=== PATIENT | male | born 1975 | race Caucasian/White ===

== ENCOUNTER 2017-10-16 19:18 | Observation (INO) | payer OTHER ==
[~2017-10-16] VITALS: Ht 182.9 cm; Wt 99.8 kg
[2017-10-16] MEDS ORDERED: MARI INH (19:36)
--- NOTE | 2017-10-16 20:01 | ED NECK/BACK PAIN COMPLAINT ---
See Addendum History of Present Illness General Chief Complaint: Low Back Pain/Injury Stated Complaint: BIBA FOR BACK PAIN Source: patient Exam Limitations: no limitations Vital Signs & Intake/Output Vital Signs & Intake/Output Vital Signs Date Time Temp Pulse Resp B/P B/P Pulse O2 O2 Flow FiO2 Mean Ox Delivery Rate 10/16 2145 97.9 77 18 108/78 97 Room Air 10/16 1920 98.1 90 22 146/89 100 Room Air ED Intake and Output 10/17 0000 10/16 1200 Intake Total 300 Output Total 325 Balance -25 Intake, Oral 300 Output, Urine 325 Patient 220 lb Weight Weight Reported by Patient Measurement Method Allergies Coded Allergies: Penicillins (PER PT CHILDHOOD ALLERGY, UNKNOWN RXN 10/16/17) Reconcile Medications Cannabis (Marijuana Oil) 1 amp AMP 1 A INH AD PRN PTSD (Reported) Triage Note: BIBA FOR LOWER BACK PAIN. WAS PLAYING WITH 3 YR OLD CHILD, BENT OVER AND FELT SEVERE PAIN IN LOWER BACK. PT LOWERED HIMSELF TO FLOOR AND LAID ON FLOOR FOR OVER AN HOUR. COULD NOT GET UP DUE TO PAIN. FINALLY CALLED AMBULANCE. PT WITH 10 OUT OF 10 PAIN IN LOWER BACK. DENIES PAIN, NUMBNESS IN LEGS. MOVES BOTH LEGS EASILY. STATES HE HURT HIS BACK A FEW YEARS AGO BUT IS NORMALLY PAIN FREE AND NOT ON ANY CHRONIC PAIN MEDS. + MEDICAL MARIJUANA USE FOR PTSD Triage Nurses Notes Reviewed? 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 He had a sudden onset of severe pinching pain in the low back that gets worse with movement. He denies any associated radiation of pain or urinary or fecal incontinence urinary retention or saddle paresthesias. He states it is similar episode about 4 years ago. Nothing seems to make the pain feel better. It is a constant pain that fluctuates in intensity and clearly gets worse with certain movements or positions. Past History Travel History Traveled to [place] past 21 day No Medical History Any Pertinent Medical History? see below for history Neurological: NONE EENT: NONE Cardiovascular: NONE Respiratory: NONE Gastrointestinal: NONE Hepatic: NONE Renal: NONE Musculoskeletal: prior episode of severe back pain Psychiatric: PTSD Endocrine: NONE Surgical History Surgical History: non-contributory Psychosocial History What is your primary language Surinamese Tobacco Use: Never used ETOH Use: occasional use Other addictive behavior Hx Patient smokes medicinal marijuana Family History Hx Contributory? No Review of Systems Review of Systems Constitutional: Reports: no symptoms. Eyes: Reports: no symptoms. Ears, Nose, Throat, Mouth: Reports: no symptoms. Respiratory: Reports: no symptoms. Cardiovascular: Reports: no symptoms. Gastrointestinal/Abdominal: Reports: no symptoms. Musculoskeletal: Reports: see HPI. Skin: Reports: no symptoms. Neurological/Psychological: Reports: no symptoms. All Other Systems: Reviewed and Negative Physical Exam Physical Exam Neck: see below Comments: Gen.: Well-nourished, well-developed, no acute respiratory distress. Mild distress while at rest secondary to back pain. Pain worsens and becomes severe with movement. Head: Normocephalic, atraumatic. Eyes: Normal inspection bilaterally Ears: Normal inspection bilaterally Nose: Normal inspection Throat/mouth : Moist mucosa Neck: Supple, full range of motion, no goiter Lungs: Quiet respirations Back: Decreased range of motion secondary to pain. Tenderness over the lumbosacral spine without associated soft tissue swelling ecchymoses or erythema. Extremities: Normal range of motion grossly, lower extremities: No straight leg raise sign (patient's back pain spasmed severely during testing), sensation intact bilaterally (no saddle paresthesias), deep tendon reflexes normal bilaterally, sensation to light touch intact bilaterally. Neurologic: Cranial nerves grossly intact, speech is clear Skin: warm and dry Psychiatric: Calm, cooperative, no apparent delusions or hallucinations Core Measures CVA/TIA Diagnosis: No Progress Differential Diagnosis: cauda equina syn, herniated disc, myofascial strain, sciatica, T/L spine injury Plan of Care: Orders Procedure Date/time Status Regular Diet 10/17 B Active Agatha Coma Scale 10/[address] in observation 10/16 2204 Active Misc Message 10/16 2204 Active ED Holding Orders 10/16 2204 Active Patient Data 10/16 2204 Active Vital Signs 10/16 2204 Active Code Status 10/16 2204 Active Intake & Output 10/16 2038 Active Current Medications Sig/Dante Start time Last Medication Dose Stop Time Status Admin Cyclobenzaprine HCl 10 MG TID PRN 10/16 2345 AC (Flexeril 10MG Tab) Ketorolac 30 MG Q6 PRN 10/16 2345 AC Tromethamine (Toradol) Oxycodone/ 1 TAB Q4P PRN 10/16 2345 AC Acetaminophen (Percocet) Diazepam 2 MG ONCE ONE 10/16 1999 CAN (Valium) 10/16 2000 Comments: Patient denies cancer unexplained weight loss or immunosuppression, denies IV drug abuse urinary tract infection or recent trauma. Denies pain increased by rest or associated fever. Denies bowel or bladder incontinence or urinary retention. Denies saddle paresthesias or major motor weakness. 10/16/2017 9:01:01 PM Dung is comfortable at rest but states he still has significant pain when he attempts to move. He does confirm that he is feeling better overall but doesn't feel that he could get home just yet. 10/16/2017 10:00:55 PM although Dung is beginning to feel better he is still incapable of getting off the stretcher without spasms of severe back pain. Departure Departure Disposition: STILL A PATIENT Condition: Stable Clinical Impression Primary Impression: Low back strain Qualifiers: Encounter type: initial encounter Qualified Code: S39.012A - Strain of muscle, fascia and tendon of lower back, initial encounter Referrals: Christos CASTAÑEDA,Moshe Munoz (PCP/Family) Additional Instructions: Rest, no exertion or lifting. Naprosyn and Norflex as needed for your back pain. Add [place] if necessary. Follow-up with your primary care physician on Friday for reevaluation. Return if any concerns or sudden worsening. Thank you for choosing the [facility] Emergency Department for your care. It was a pleasure to serve you today. Ashu Vance M.D. [facility] Departure Forms: Customer Survey General Discharge Information
[2017-10-17] MEDS ORDERED: PERCOCET 5-3251 EACH PO (06:33)
[2017-10-17] MEDS ORDERED: KETOROLAC TROME10 M1 PO (06:33)
[2017-10-17] MEDS ORDERED: ORPHENADRINE C100 MG PO (06:33)
--- NOTE | 2017-10-17 09:23 | CT SCAN REPORT ---
EXAMINATION: CT LUMBAR SPINE WITHOUT CONTRAST CLINICAL INFORMATION: Rule out herniated disc. Severe lower intractable back pain. COMPARISON: None TECHNIQUE: Helical non-contrast CT images were obtained through the lumbar spine and 1.25 and 2.5 mm axial reconstructions were reviewed along with sagittal and coronal MPRs. DLP: 922 mGy-cm FINDINGS: The lumbar vertebral bodies maintain normal heights and alignment. No fracture is seen. There is intervertebral disc height loss at L5-S1 with associated marginal endplate spurring. Mild endplate spurring is also present at L3-L4. There is chronic appearing fracture deformity of the left L1 transverse process. The visualized paraspinal muscles and intra-abdominal and pelvic contents are within normal limits. SPINAL LEVELS: T12-L1: No posterior disc abnormality. No spinal canal or neural foraminal stenosis. L1-L2: No posterior disc abnormality. No spinal canal or neural foraminal stenosis. L2-L3: No posterior disc abnormality. No spinal canal or neural foraminal stenosis. L3-L4: Disc bulging with posterior annular calcification and mild bilateral facet arthropathy. There is narrowing of the left subarticular zone with possible mass effect on the descending left L4 nerve root. There is mild right neural foraminal stenosis but no spinal canal stenosis. L4-L5: Disc bulging with posterior annular calcification and mild to moderate bilateral facet arthropathy resulting in right subarticular zone stenosis with possible mass effect on the descending right L5 nerve root. There is mild bilateral neural foraminal stenosis. L5-S1: Disc bulging disc bulging with possible superimposed central disc protrusion which may contact the descending left S1 nerve root in the subarticular zone. There is moderate bilateral facet arthropathy with mild bilateral neural foraminal stenosis. IMPRESSION: 1. No lumbar spine fracture or malalignment. 2. Intervertebral disc height loss at L5-S1. 3. Mild multilevel degenerative spondylotic changes at L3-L4 through L5-S1 with possible mass effect on nerve roots as detailed above. 4. Chronic appearing fracture deformity of the left L1 transverse process.
[2017-10-17 12:09] VITALS: BP 127/84
== END 2017-10-17 12:44 ==
LOC: ERH 19:18 → ERHI 22:05
DX: S39.012A Strain of muscle, fascia and tendon of lower back, initial encounter (principal); F12.90 Cannabis use, unspecified, uncomplicated; F43.10 Post-traumatic stress disorder, unspecified
CPT/HCPCS: 6090; 96374; 96375; 96376; G0378; J1885